=== PATIENT | female | born 1960 | race Caucasian/White ===

== ENCOUNTER 2018-04-13 14:47 | Emergency (ER) | payer BC ==
[~2018-04-13] VITALS: Ht 170.2 cm; Wt 74.8 kg
[2018-04-13 14:54] VITALS: BP 151/76
== END 2018-04-13 16:44 | disposition home or self-care (01) ==
LOC: ER 14:51
DX: S90.32XA Contusion of left foot, initial encounter (principal); I10 Essential (primary) hypertension; W10.8XXA Fall (on) (from) other stairs and steps, initial encounter; Y93.01 Activity, walking, marching and hiking; Y92.89 Other specified places as the place of occurrence of the external cause; Y99.8 Other external cause status
CPT/HCPCS: 73610; 73630; 99284; A4606; Z7610